=== PATIENT | male | born 1985 | race Two or more races ===

== ENCOUNTER 2024-08-22 05:52 | Emergency (ER) | payer MEDICAID, SELFPAY ==
[2024-08-22 05:53] VITALS: BMI 25.0
[2024-08-22 06:00] VITALS: BP 145/85; PULSE 85; RESP 20; TEMP 36.6; O2SAT 96
--- NOTE | 2024-08-22 06:12 | XR_ITS ---
Examination: Wrist, left 3 views Technique: Wrist AP, oblique, lateral 3 views Date and time of exam: August 22, 2024 at 0517 hrs. Indications: Patient fell today with injury to this, wrist pain Findings: Acute fracture distal third of the navicular No dislocation No foreign body Impression: Acute fracture distal third of the navicular
--- NOTE | 2024-08-22 06:17 | EDNOTE_ITS ---
Upper Extremity Injury RME/HPI General Chief Complaint: Extremity Injury, Upper Stated Complaint: LEFT WRIST INJURY Time Seen by Provider: 08/22/24 06:08 Source: patient Arrival date/time: 08/22/24 05:52 39-year-old male with no known medical history presents to the emergency room with a chief complaint of tenderness and pain to his left wrist after a ground- level fall that occurred yesterday. Mode of arrival: ambulatory Limitations: no limitations Related Data Previous Rx's ?Medication ?Instructions ?Recorded hydrocodone 5 mg-acetaminophen 325 1 tab PO BID PRN pa in #10 tabs 08/22/24 mg tablet Allergies Allergy/AdvReac Type Severity Reaction Status Date / Time No Known Allergies Allergy Verified 08/22/24 05:55 Review of Systems Review of Systems Systems Reviewed: All systems reviewed, normal except as documented Constitutional Constitutional: Reports system reviewed and no additional complaints, except as documented, Denies fatigue, Denies fever(s), Denies headache(s) and Denies weakness Eyes Eyes: Reports system reviewed and no additional complaints, except as documented, Denies blurry vision and Denies change in vision ENT Ears, Nose, Mouth, and Throat: Reports system reviewed and no additional complaints, except as documented, Denies otalgia, Denies headache(s), Denies nasal congestion, Denies throat swelling and Denies vertigo Cardiovascular Cardiovascular: Reports system reviewed and no additional complaints, except as documented, Denies chest pain, Denies dyspnea and Denies dyspnea on exertion Respiratory Respiratory: Reports system reviewed and no additional complaints, except as documented, Denies chest congestion, Denies cough, Denies dyspnea, Denies dyspnea on exertion and Denies wheezing Gastrointestinal Gastrointestinal: Reports system reviewed and no additional complaints, except as documented, Denies abdominal pain, Denies cramping, Denies nausea and Denies vomiting Genitourinary Genitourinary: Reports system reviewed and no additional complaints, except as documented, Denies dysuria and Denies hematuria Musculoskeletal Musculoskeletal: Reports system reviewed and no additional complaints, except as documented, Reports arthralgias, Denies back pain and Reports joint swelling Integumentary/Breasts Skin/Breast: Reports system reviewed and no additional complaints, except as documented and Denies wounds Neurologic Neurologic: Reports system reviewed and no additional complaints, except as documented, Denies confusion, Denies headache(s), Denies lack of coordination, Denies vertigo and Denies weakness Psychiatric Psychiatric: Reports system reviewed and no additional complaints, except as documented, Denies anxiety, Denies confusion, Denies depression, Denies paranoia, Denies suicidal ideation and Denies tactile hallucinations Endocrine Endocrine: Reports system reviewed and no additional complaints, except as documented and Denies fatigue Hematologic/Lymphatic Hematologic/Lymphatic: Reports system reviewed and no additional complaints, except as documented and Denies lymphadenopathy Allergic/Immunologic Allergic/Immunologic: Reports system reviewed and no additional complaints, except as documented, Denies throat swelling, Denies urticaria and Denies wheezing ED Exam General Limitations: Present no limitations General appearance: Present alert and in no apparent distress Head Head exam: Present atraumatic Eye Eye exam: Present normal appearance, PERRL and EOMI ENT ENT exam: Present normal exam, normal oropharynx and mucous membranes moist Neck Neck exam: Present normal inspection, full ROM and trachea midline Chest Chest inspection: Present normal inspection and symmetric chest wall rise Respiratory Respiratory exam: Present normal lung sounds bilaterally Cardiovascular Cardiovascular exam: Present regular rate, normal rhythm and normal heart sounds Abdominal Exam Abdominal exam: Present soft and normal bowel sounds Extremities Exam Extremities exam: Present normal inspection and full ROM Expanded Upper Extremity Exam Shoulder exam: Present normal inspection Arm exam: Present normal inspection Elbow exam: Present normal inspection Forearm/Wrist exam: Present full ROM, tenderness, swelling and pain with axial thumb loading; Absent tenderness over anatomical snuff box Hand exam: Present normal inspection Vascular exam: Normal capillary refill Back Exam Back exam: Present normal inspection and full ROM Neurological Exam Neurological exam: Present alert, oriented X3 and CN II-XII intact Psychiatric Psychiatric exam: Present normal affect and normal mood Skin Skin exam: Present warm, dry, intact and normal color Course Quality Measures none Orders Category Date Time Status Splint / Immobilizer STAT Care 08/22/24 07:50 Completed XR wrist comp LT min 3V Stat Exams 08/22/24 06:12 Completed HYDROcodone*/APAP 5/325 [[place] 5/325] Med 08/22/24 07:54 Discontinued 1 tab PO X1 ONE Vital Signs Vital signs: Vital Signs Temperature 97.8 F 08/22/24 06:00 Pulse Rate 85 08/22/24 06:00 Respiratory Rate 20 08/22/24 06:00 Blood Pressure 145/85 H 08/22/24 06:00 Pulse Oximetry (%) 96 08/22/24 06:00 Oxygen Delivery Method Room Air 08/22/24 06:00 O2 saturation 96% within normal limits Extremity Injury MDM Narrative MDM Narrative:: 39-year-old male with no known medical history presents to the emergency room with a chief complaint of tenderness and pain to his left wrist after a ground- level fall that occurred yesterday. Patient is hemodynamically stable and in no apparent distress Physical examination shows tenderness and swelling to the left wrist. The patient has on a brace and states it is providing him with comfort. X-ray of the left wrist was completed and shows a fracture. A sugar-tong splint was placed for comfort. Patient was educated to follow-up with his primary care provider as he will need a referral to an trade specialist for further management. Patient was discharged and educated to follow-up with primary care provider in the next 24 to 48 hours and return to the emergency room for any evidence of worsening signs or symptoms Patient data External records reviewed:: [facility] previous records Clinical information provided by:: patient Social determinants that could affect healthcare access:: none Patient has the following chronic illnesses:: No chronic illness How is presenting disease/condition affected by chronic disease/condition?: no chronic disease Evaluation data The following diagnostics were reviewed and interpreted by me:: lab results and radiology exam(s) Lab and/or radiology exams considered but not ordered:: Labs and radiology exams considered and ordered Interpretation Summary: Left wrist [id number]: Acute fracture distal third of the navicular No dislocation No foreign body Impression: Acute fracture distal third of the navicular Medications / Prescriptions Medications or Prescriptions considered but not ordered:: Rx given Medication administrations:: Medication Administration History Discontinued Medications Hydrocodone Bitart/Acetaminophen (Hydrocodone/Apap 5/325 Tablet) 1 tab PO X1 ONE Stop: 08/22/24 07:55 Last Admin: 08/22/24 08:00 Dose: 1 tab Documented By: Medication given Consultations Consultation(s) initiated? (list below): No Diagnosis Upper Extremity Injury Differential Diagnosis: sprain and strain of wrist and fracture of wrist Most likely diagnosis given after review of the tests above:: Fracture of wrist Admission Indicated Admission indicated?: not indicated Admission Request Was there a request for admission?: No Disposition Plan Disposition Plan: Discharge Discharge Attestation Discharge Attestation: The patient and all family members were given an opportunity to ask questions and understood the discharge instructions. Discharge instructions specifically effects, indications for sooner follow up or return to the emergency department, and the expected course of current diagnosis. Patient condition: Stable Discharge Plan Plan Patient Disposition: HOME (Self Care) Disposition Comment: Stable Prescriptions/Referrals Prescriptions/Med Rec: New hydrocodone-acetaminophen 5-325 mg tablet 1 tab PO BID MDD 10mg PRN (Reason: pain) Qty: 10 0RF Referrals: Daly Staples PA-C [Primary Care Provider] - In 1 week Problem List Clinical Impression: Fracture of wrist Patient/Caregiver Discharge Instructions Education Materials: ED Fracture, Wrist, General Additional Instructions: Please follow-up with your primary care provider in the next 24 to 48 hours. You will need a referral to see an trade specialist for further management of your fracture. Please keep your splint in place into you are seen and cleared by an trade specialist. Pain medication was sent to your pharmacy please pick it up and take it as indicated. For any evidence of worsening signs or symptoms return to the emergency room immediately. Print Language: [place] Stand Alone Forms: Alie Award Info., Work/School Release, Patient Portal Info Letter BELG[place]/PAOLA Supervising Physician [place] Supervising Physician: Dr. Curtis
[2024-08-22] MEDS: HYDROcodone/APAP 5/325 TABLET 1 TAB PO (08:00)
== END 2024-08-22 08:12 | disposition home or self-care (01) ==
PROVIDERS: Emergency Provider Emergency Medicine; PCP Physician Assistant
DX: S62.012A Displaced fracture of distal pole of navicular [scaphoid] bone of left wrist, initial encounter for closed fracture (principal); W18.30XA Fall on same level, unspecified, initial encounter
CPT/HCPCS: 29126; 73110; 99283; A9270